=== PATIENT | male | born 1955 | race Caucasian/White ===

== ENCOUNTER 2016-04-23 10:33 | Emergency (ER) | payer MEDICARE ==
[2016-04-23] MEDS ORDERED: METHYLPRED SOD SUCC 125 MG/2 ML VIAL ONE (11:11)
[2016-04-23] MEDS ORDERED: KETOROLAC 60 MG/2 ML VIAL IM ONE (11:11)
== END 2016-04-23 12:23 | disposition home or self-care (01) ==
LOC: FASTR 10:33
DX: S43.421A Sprain of right rotator cuff capsule, initial encounter (principal); Y93.84 Activity, sleeping; Y92.003 Bedroom of unspecified non-institutional (private) residence as the place of occurrence of the external cause; M19.011 Primary osteoarthritis, right shoulder; Z79.899 Other long term (current) drug therapy; Z79.01 Long term (current) use of anticoagulants; Z87.891 Personal history of nicotine dependence
CPT/HCPCS: 73030; 96372; 99283; J2930